=== PATIENT | male | born 1945 | race Caucasian/White ===

== ENCOUNTER 2016-09-09 15:19 | Emergency (ER) | payer MEDICARE ==
[2014-10-02 06:51] VITALS: BMI 32.1
[~2016-09-09 15:19] MED LIST: AMOXICILLIN500 M1 PO; BAYER CHEWABLE81 MG PO; BETA CAROTENE; CARDURA1 MG PO; CORDARONE200 MG PO; DIABETA5 MG PO; GALZIN50 MG PO; GLUCOPHAGE1000 MG PO; GLUCOTROL 5 MG T5 MG PO; HUMULIN 70100 UNIT/1 SQ; HUMULIN N100 U/ML SC; HYDROCHLOROTHIA25 MG PO; HYDROCODONE-APA1 TAB PO; LOPRESSOR25 MG PO; MAG-OX 400 MG400 MG PO; METOPROLOL TART50 MG PO; MIRALAX17 GM PO; MULTAQ400 MG PO; NITROSTAT0.4 MG SL; NORCO 10/325 TA1 TA1 PO; NORVASC10 MG PO; NOVOLIN N100 U/ML SQ; NOVOLOG100 U/M1 SQ; PLAVIX75 MG PO; PRINIVIL20 MG PO; PROTONIX40 MG PO; SUPER B COMPLE150 MG PO; TEMAZEPAM PO; VITAMIN D31000 UNIT PO; XANAX0.5 MG PO; XARELTO20 MG PO; ZESTORETIC 20/21 TAB PO; ZESTRIL40 MG PO
== END 2016-09-09 16:20 | disposition home or self-care (01) ==
LOC: D.ER 15:19
DX: N49.2 Inflammatory disorders of scrotum (principal); B36.9 Superficial mycosis, unspecified; C19 Malignant neoplasm of rectosigmoid junction; E11.9 Type 2 diabetes mellitus without complications; Z79.4 Long term (current) use of insulin; I10 Essential (primary) hypertension

== ENCOUNTER 2016-10-01 15:08 | Inpatient (IN) | payer MEDICARE ==
[~2016-10-01] VITALS: Ht 188 cm; Wt 109.1 kg
[2016-10-01 15:59] LABS: BASOPHILS 0.3 % (0-2); EOSINOPHILS 3.2 % (0-7); HEMOGLOBIN 13.4 g/dL (13.5-17.5); IMMATURE GRANULOCYTES 0.3 % (0-5); LYMPHOCYTES 28.9 % (15-50); MCH 31.1 pg (26.0-34.0); MCHC 35.3 g/dL (31.0-37.0); MCV 88.2 fL (80.0-100.0); MEAN PLATELET VOLUME 8.9 fL (7.4-10.4); NEUTROPHILS 57.3 % (40-80); RBC 4.31 10x6/uL (4.20-6.10); RDW 12.3 % (11.5-14.5); WBC 7.5 10x3/uL (4.8-10.8)
[2016-10-01 16:03] LABS: PLATELET COUNT 354 10x3/uL (130-400)
[2016-10-01 16:46] LABS: ALBUMIN 3.4 g/dL (3.4-5.0); ALKALINE PHOSPHATASE 66 U/L (46-116); ALT (SGPT) 25 U/L (10-68); BILIRUBIN - TOTAL 0.48 mg/dL (0.2-1.3); CALC OSMOLALITY 249 mosm/kg (275-300); CALCIUM 8.6 mg/dL (8.5-10.1); CARBON DIOXIDE 27.4 mmol/L (21.0-32.0); CHLORIDE - SERUM 88 mmol/L (98-107); PROTEIN - SERUM 6.9 g/dL (6.4-8.2); SODIUM 121 mmol/L (136-145); UREA NITROGEN 18 mg/dL (7-18); eGFR NON AFRICAN AMERICAN 78 mL/min (90-120)
[2016-10-01 16:52] LABS: GLUCOSE 163 mg/dL (74-106)
[2016-10-01 16:56] LABS: T4 THYROXIN - FREE 1.26 ng/dL (0.76-1.46); THYROID STIMULATING HORMONE 1.01 uIU/mL (0.36-3.74)
[2016-10-01 20:00] VITALS: BP 123/63
[2016-10-01] MEDS ORDERED: LONITEN2.5 MG PO (20:03)
[2016-10-01] MEDS ORDERED: HCTZ25 MG PO (20:04)
[2016-10-01 23:39] VITALS: BP 123/63; Ht 188 cm; Wt 109.1 kg
[2016-10-02] VITALS: BP 157/79
[2016-10-02 04:00] VITALS: BP 123/82
[2016-10-02 05:49] LABS: BASOPHILS 0.6 % (0-2); EOSINOPHILS 2.5 % (0-7); HEMATOCRIT 35.3 % (42.0-54.0); HEMOGLOBIN 12.3 g/dL (13.5-17.5); IMMATURE GRANULOCYTES 0.3 % (0-5); MCH 30.7 pg (26.0-34.0); MCHC 34.8 g/dL (31.0-37.0); MONOCYTES 12.2 % (2-11); NEUTROPHILS 61.4 % (40-80); PLATELET COUNT 309 10x3/uL (130-400); RBC 4.01 10x6/uL (4.20-6.10); RDW 12.1 % (11.5-14.5); WBC 7.2 10x3/uL (4.8-10.8)
[2016-10-02 06:03] LABS: CALC OSMOLALITY 256 mosm/kg (275-300); CALCIUM 8.5 mg/dL (8.5-10.1); CARBON DIOXIDE 27.2 mmol/L (21.0-32.0); CHLORIDE - SERUM 92 mmol/L (98-107); CREATININE - SERUM 0.9 mg/dL (0.6-1.3); GLUCOSE 162 mg/dL (74-106); SODIUM 125 mmol/L (136-145); UREA NITROGEN 15 mg/dL (7-18); eGFR NON AFRICAN AMERICAN 88 mL/min (90-120)
--- NOTE | 2016-10-02 07:30 | NUR ---
REPORT RECEIVED FROM FINISHING DEPARTMENT SUPERVISOR NURSE. CALL LIGHT IN REACH.
--- NOTE | 2016-10-02 07:51 | NUR ---
REQUESTING NORCO, XANAX, AND GUEST TRAY FOR HIS . NORCO TAKEN TO PATIENT BUT NO ORDER FOR XANAX. INFORMED PATIENT THAT I WILL HAVE TO CALL THE DOCTOR TO GET AN ORDER AND SPEAK WITH ADMINISTRATION FOR A GUEST TRAY. VERBALIZED UNDERSTANDING. CALL LIGHT IN REACH. WILL CONTINUE WITH PLAN OF CARE.
[2016-10-02 09:32] VITALS: BP 128/68
--- NOTE | 2016-10-02 09:50 | NUR ---
PT SEEN. LYING ON RIGHT SIDE WITH LEGS ELEVATED SLIGHTLY. RIGHT LOWER BARKER RED AND WARM WITH RIGHT ROOT 2-3+ EDEMA. PT STATES PAIN IS SHOOTING AT PRESENT. CALLS LIGHT IN REACH. AT BEDSIDE. ASSISTED HER TO GET ON WIFI.
--- NOTE | 2016-10-02 10:07 | NUR ---
URINE SAMPLE COLLECTED AND SENT TO LAB.
[2016-10-02 11:58] VITALS: BP 146/68
--- NOTE | 2016-10-02 12:05 | NUR ---
AM MEDS ADMINISTERED WITH NORCO FOR PAIN. ALSO XANAX FOR ANXIETY. REFUSES TO LET ME GET HIS BLOOD SUGAR AND REFUSES TO DO THE SLIDING SCALE INSULIN. STATES HE ALREADY TOOK HIS NPH THIS MORNING. EXPLAINED TO PATIENT THAT HE NEEDS TO ALLOW US TO GIVE HIM THE MEDS WE HAVE SO WE CAN PROPERLY DOCUMENT IT. PATIENT ARGUED ANOUT IT. ELEVATORS INSPECTOR NOTIFIED. MED REC ALSO CORRECTED. CALL LIGHT IN REACH. WILL CONTINUE WITH PLAN OF CARE.
[2016-10-02] MEDS ORDERED: PRINIVIL10 MG PO (12:46)
--- NOTE | 2016-10-02 14:58 | NUR ---
METOPROLOL NOT GIVEN BECAUSE PATIENT SAYS HE TOOK HIS OWN. WATER FILTER CLEANER AWARE OF THIS. INFORMED PATIENT AGAIN THAT HE CANNOT DO THAT AND WE HAVE TO DOCUMENT IT. VERBALIZED UNDERSTANDING.
--- NOTE | 2016-10-02 15:14 | NUR ---
DR. CARROLL HERE TO SEE PATIENT.
--- NOTE | 2016-10-02 16:44 | NUR ---
REFUSES TO WEAR TELEMETRY AT THIS TIME. NORCO AND GLIPIZIDE PO. TEFLARO IVPB. ALSO REFUSES BLOOD SUGAR. WILL NOTIFY MD OR CENTRAL OFFICE MECHANIC. IN ROOM. CALL LIGHT IN REACH.
[2016-10-02 17:16] VITALS: BP 118/58
--- NOTE | 2016-10-02 18:06 | NUR ---
NO CHANGES IN INITIAL ASSESSMENT. CALL LIGHT IN REACH. AT BEDSIDE. WILL CONTINUE WITH PLAN OF CARE.
[2016-10-02 19:00] VITALS: BP 151/80
--- NOTE | 2016-10-02 23:48 | NUR ---
REC'D RESTING IN BED. AT BEDSIDE. ALERT AND ORIENTED X4. NO DISTRESS NOTED. REFUSED TO HAVE BLOOD SUGAR TAKEN AND TO TAKE INSULIN. WILL CONT TO MONITOR. INSTUCTED TO CALL IF NEEDED ANYTHING. VERBALIZED UNDERSTANDING. BED LOW, LOCKED, CALL LIGHT IN REACH.
[2016-10-03] VITALS: BP 118/56
[2016-10-03 04:00] VITALS: BP 146/73
--- NOTE | 2016-10-03 05:00 | NUR ---
EYES CLOSED RESPIRATIONS WITH EASE AND UNLABORED.
[2016-10-03 06:12] LABS: BASOPHILS 0.3 % (0-2); HEMATOCRIT 35.4 % (42.0-54.0); HEMOGLOBIN 12.4 g/dL (13.5-17.5); IMMATURE GRANULOCYTES 0.3 % (0-5); LYMPHOCYTES 26.7 % (15-50); MCH 30.7 pg (26.0-34.0); MCV 87.6 fL (80.0-100.0); MEAN PLATELET VOLUME 8.8 fL (7.4-10.4); MONOCYTES 11.5 % (2-11); NEUTROPHILS 58.2 % (40-80); PLATELET COUNT 309 10x3/uL (130-400); RBC 4.04 10x6/uL (4.20-6.10); RDW 12.2 % (11.5-14.5); WBC 6.4 10x3/uL (4.8-10.8)
[2016-10-03 06:20] LABS: HEMOGLOBIN A1C 7.7 % (4.8-6.0)
[2016-10-03 06:34] LABS: ALBUMIN 2.9 g/dL (3.4-5.0); ALKALINE PHOSPHATASE 58 U/L (46-116); ALT (SGPT) 23 U/L (10-68); CALC OSMOLALITY 253 mosm/kg (275-300); CALCIUM 8.3 mg/dL (8.5-10.1); CARBON DIOXIDE 24.4 mmol/L (21.0-32.0); CHLORIDE - SERUM 93 mmol/L (98-107); GLUCOSE 151 mg/dL (74-106); PROTEIN - SERUM 6.4 g/dL (6.4-8.2); SODIUM 124 mmol/L (136-145); THYROID STIMULATING HORMONE 0.96 uIU/mL (0.36-3.74); UREA NITROGEN 16 mg/dL (7-18); eGFR NON AFRICAN AMERICAN 78 mL/min (90-120)
--- NOTE | 2016-10-03 07:20 | NUR ---
REPORT RECEIVED FROM ENERGY PROJECT ENGINEER NURSE. CALL LIGHT IN REACH.
--- NOTE | 2016-10-03 07:34 | NUR ---
PATIENT IN BED LAYING ON SIDE WITH EYES CLOSED. FAMILY AT BEDSIDE. CALL LIGHT WITHIN REACH.
--- NOTE | 2016-10-03 08:30 | NUR ---
ASSESSMENT COMPLETED. AM MEDS ADMINISTERED. CALL LIGHT IN REACH. WILL CONTINUE WITH PLAN OF CARE.
[2016-10-03 09:03] VITALS: BP 128/64
--- NOTE | 2016-10-03 09:33 | NUR ---
STATES HE TOOK HIS OWN LISINOPRIL. IV DC'D WITH TIP INTACT D/T LEAKING.
--- NOTE | 2016-10-03 10:58 | NUR ---
RAFAELA STOKES, IN ROOM TO ASSESS PATIENT.
[2016-10-03 12:05] VITALS: BP 131/64
--- NOTE | 2016-10-03 12:31 | NUR ---
SAMMIE PO. REFUSES FSBS. ALSO SAID HE HAS GIVEN HIMSELF HIS OWN INSULIN AGAIN.
[2016-10-03] MEDS ORDERED: KEFLEX500 MG PO (12:41)
--- NOTE | 2016-10-03 13:31 | NUR ---
CM REASSESSMENT NOTE: PATIENT IS D/C HOME TODAY/ DRIVING. PATIENT REFUSED HOME HEALTH AND STATED HE HAD NO OTHER NEEDS FOR DISCHARGE.
--- NOTE | 2016-10-03 14:30 | NUR ---
DC INSTRUCTIONS EXPLAINED TO PATIENT AND . VERBALIZED UNDERSTANDING. DC'D TO VEHICLE VIA WC WITH .
== END 2016-10-03 14:37 | disposition home or self-care (01) | DRG 603 ==
LOC: D.ER 15:08 → D.MS 17:58
PROVIDERS: Emergency Medicine; ADMIT Family Medicine
DX: L03.115 Cellulitis of right lower limb (principal); E87.1 Hypo-osmolality and hyponatremia; I11.0 Hypertensive heart disease with heart failure; I50.9 Heart failure, unspecified; F41.9 Anxiety disorder, unspecified; I48.91 Unspecified atrial fibrillation; Z91.19 Patient's noncompliance with other medical treatment and regimen; G51.0 Bell's palsy; E11.65 Type 2 diabetes mellitus with hyperglycemia; Z79.4 Long term (current) use of insulin; K21.9 Gastro-esophageal reflux disease without esophagitis; I25.10 Atherosclerotic heart disease of native coronary artery without angina pectoris

== ENCOUNTER 2017-06-15 16:54 | Emergency (ER) | payer MEDICARE ==
[2016-10-01 23:39] VITALS: BMI 30.8
[~2017-06-15 16:54] MED LIST changes: +HCTZ25 MG PO; +KEFLEX500 MG PO; +LONITEN2.5 MG PO; +PRINIVIL10 MG PO
[2017-06-15 19:02] LABS: BASOPHILS 0.3 % (0-2); EOSINOPHILS 2.4 % (0-7); HEMATOCRIT 40.5 % (42.0-54.0); HEMOGLOBIN 14.2 g/dL (13.5-17.5); IMMATURE GRANULOCYTES 0.2 % (0-5); LYMPHOCYTES 24.1 % (15-50); MCH 31.7 pg (26.0-34.0); MCHC 35.1 g/dL (31.0-37.0); MCV 90.4 fL (80.0-100.0); MONOCYTES 10.2 % (2-11); NEUTROPHILS 62.8 % (40-80); RBC 4.48 10x6/uL (4.20-6.10); RDW 12.2 % (11.5-14.5); WBC 8.6 10x3/uL (4.8-10.8)
[2017-06-15 19:06] LABS: PLATELET COUNT 239 10x3/uL (130-400)
[2017-06-15 19:15] LABS: ALBUMIN 3.5 g/dL (3.4-5.0); ALKALINE PHOSPHATASE 64 U/L (46-116); ALT (SGPT) 46 U/L (10-68); CALC OSMOLALITY 267 mosm/kg (275-300); CALCIUM 9.3 mg/dL (8.5-10.1); CARBON DIOXIDE 25.2 mmol/L (21.0-32.0); CHLORIDE - SERUM 97 mmol/L (98-107); GLUCOSE 143 mg/dL (74-106); POTASSIUM - SERUM 4.7 mmol/L (3.5-5.1); PROTEIN - SERUM 7.5 g/dL (6.4-8.2); SODIUM 132 mmol/L (136-145); UREA NITROGEN 15 mg/dL (7-18); eGFR NON AFRICAN AMERICAN 78 mL/min (90-120)
== END 2017-06-15 19:06 | disposition home or self-care (01) ==
LOC: D.ER 16:54
PROVIDERS: Physician Assistant Medical
DX: K59.00 Constipation, unspecified (principal); I50.9 Heart failure, unspecified; Z85.038 Personal history of other malignant neoplasm of large intestine; E11.9 Type 2 diabetes mellitus without complications; Z79.4 Long term (current) use of insulin